=== PATIENT | male | born 1965 ===

== ENCOUNTER 2020-06-02 11:09 | Outpatient (CLI) | payer MEDICARE ==
[2020-06-02 11:35] LABS: Basophils # (Auto) 0.1 K/mm3 (0.0-0.1); Basophils % (Auto) 0.9 % (0.0-1.8); Eosinophils # (Auto) 0.2 K/mm3 (0.0-0.4); Eosinophils % (Auto) 3.8 % (0.0-4.3); Hematocrit 46.5 % (35.5-45.6); Hemoglobin 16.2 gm/dl (11.8-15.2); Lymphocytes # (Auto) 2.5 K/mm3 (1.2-5.4); Mean Corpuscular HGB Conc 35 % (32-34); Mean Corpuscular Volume 92 fl (84-94); Monocytes # (Auto) 0.7 K/mm3 (0.0-0.8); Monocytes % (Auto) 11.1 % (0.0-7.3); Platelet Count 260 K/mm3 (140-440); Red Blood Count 5.04 M/mm3 (3.65-5.03)
[2020-06-02 11:51] LABS: Albumin 4.3 g/dL (3.9-5); Calcium 9.4 mg/dL (8.4-10.2)
--- NOTE | 2020-06-02 12:13 | XRay Report ---
LEFT SHOULDER 3 VIEWS INDICATION: LEFT SHOULDER PAIN. COMPARISON: None. IMPRESSION: Normal bone mineralization. 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 Normal articulation at the glenohumeral joint. No acute osseous or soft tissue findings. Signer Name: José Waldron Jr, MD Signed: 06/02/2020 12:08 PM Workstation Name: [id number]
== END 2020-06-02 11:10 | disposition home or self-care (01) ==
LOC: LAB 11:09
PROVIDERS: ATTEND Internal Medicine
DX: Z00.00 Encounter for general adult medical examination without abnormal findings (principal); Z13.1 Encounter for screening for diabetes mellitus; Z13.29 Encounter for screening for other suspected endocrine disorder; Z13.220 Encounter for screening for lipoid disorders; M19.012 Primary osteoarthritis, left shoulder; E55.9 Vitamin D deficiency, unspecified
CPT/HCPCS: 36415; 80053; 82306; 84443; 85025

== ENCOUNTER 2021-10-26 09:05 | Outpatient (CLI) | payer MEDICARE ==
[2021-10-26 12:56] LABS: Chol/HDL Ratio 4.47 %
== END 2021-10-26 09:06 | disposition home or self-care (01) ==
LOC: LABHHL 09:05
PROVIDERS: ATTEND Internal Medicine
DX: N28.9 Disorder of kidney and ureter, unspecified (principal); R73.03 Prediabetes; E78.5 Hyperlipidemia, unspecified
CPT/HCPCS: 36415; 80048; 80061; 83036